=== PATIENT | male | born 1945 | race Caucasian/White ===

== ENCOUNTER → 2025-01-09 | Day surgery (SDC) | payer MEDICARE, OTHER ==
[2025-01-02 13:05] LABS: MEAN PLATELET VOLUME 8.1 FL (7.4-10.4); PRE OP HEMATOCRIT 49.0 % (42.0-52.0); PRE OP HEMOGLOBIN 16.7 g/dL (14.0-17.9); PRE OP PLATELET COUNT 146 X10'3 (140-440); PRE OP WHITE BLOOD COUNT 8.5 10'3 (4.8-10.8); RED CELL DISTRIBUTION WIDTH 15.1 % (11.5-14.5)
[2025-01-02 13:18] LABS: CREATININE 1.11 MG/DL (0.60-1.10); PRE OP ALT 29 U/L (30-65); PRE OP ANION GAP 5 (8-16); PRE OP AST 23 U/L (10-37); PRE OP BILIRUB, TOTAL 0.7 MG/DL (0.0-1.0); PRE OP GLUCOSE 104 MG/DL (70-104); PRE OP POTASSIUM 4.4 MMOL/L (3.4-5.1); PRE OP SODIUM 137 MMOL/L (135-145); TOTAL CARBON DIOXIDE 27.2 MMOL/L (24-32); eGFR 64 ML/MIN
[~2025-01-09] VITALS: Ht 177.8 cm; Wt 95.8 kg
[~2025-01-09] MED LIST: ASPI81TA52 PO; BENA10TA74 PO; BUPIVAcaine 0.5% inj/PF 0 ML ONE; CHOL3000 PO; DOCUMENT DATE & TIME OF BETA-BLOCKER PO ONE; HYDROmorphone/PF 0.2 MG/ML SYRINGE IV PRN; LIDOcaine 1% (10mg/ml)w/preservative inj. 20ml MDV ONE; METO-384 PO; ROSU10TA72 PO; acetaminophen 1,000mg/100ml IV 100 ML IV PRN; fentaNYL/PF 50MCG/1 ML 2ML syringe ONE; hydrALAZINE 20mg/ml inj. IV PRN; labetalol 20mg/4ml (5mg/ml) syringe IV PRN; metoprolol tartrate 12.5mg (1/2 tablet) PO ONE; midazolam 1 mg/ML 2ml injection ONE; morphine 4 MG/ML inj SYRINge IV PRN; ondansetron/PF 4mg/2ml inj IV PRN; propofol inj 20 ML IV ONE; ringers solution, lacted 1,000 ML IV SCH
[2025-01-09] MEDS: ceFAZolin 2gm/dext,iso 50mL 50 ML IV ONE (05:30)
[2025-01-09 06:30] VITALS: BP 128/76; PULSE 60; RESP 16; TEMP 97.9; O2SAT 97
[2025-01-09] MEDS: ringers solution, lacted 1,000 ML IV SCH (06:56)
[2025-01-09] MEDS: LIDOcaine 1% 30ml preserv. free vial IJ ONE (08:25)
[2025-01-09 08:40] VITALS: BP 107/65; PULSE 60; RESP 14; O2SAT 99
[2025-01-09 08:50] VITALS: BP 110/71; PULSE 60; RESP 16; O2SAT 97
[2025-01-09 09:00] VITALS: BP 110/73; PULSE 60; RESP 16; O2SAT 95
[2025-01-09 09:10] VITALS: BP 116/73; PULSE 60; RESP 12; O2SAT 96
--- NOTE | 2025-01-09 09:16 | OPERATIVE REPORT ---
Operative Report Operative Report CV surgery operative report 09 January 2025 Preoperative diagnosis: Permanent pacemaker generator BERT Postop diagnosis: Same Procedure: Pacemaker generator replacement using a [employer] model# [id number] serial# [id number] Surgeon: Dr. Alta Rivera Anesthesia: Local with 1% lidocaine approximately 8 cc with monitored anesthesia coverage Dr. Mott Complications: None EBL: 2 cc Procedure: The patient is taken to the operating room placed in supine position. Following the administration of intravenous sedation the anterior chest was prepped and draped sterilely. The skin and subcutaneous tissue overlying the pulse generator in the left prepectoral soft tissues was infiltrated with 1% lidocaine. The previous incision was reincised and carried down through skin and subcutaneous tissue sharply using electrocautery for hemostasis. The pocket surrounding the pulse generator was incised and the generator was removed. The leads were disconnected and then reconnected to the [employer] pulse generator. Interrogation showed a threshold for the right atrial lead of 0.4 volts at 0.4 milliseconds and impedance of 410 Ohms at 5 volts. The sensing P-wave was 3 mV. The right ventricular lead had a threshold of 0.5 volts with a current of 4.4 milliseconds. It had an impedance of 488 Ohms. The patient was pacer dependent and sensing was not determinable. The lead was placed back within the pocket coiling all excess lead between the generator and the muscle. The pocket was then copiously irrigated with antibiotic solution. The incision was closed by reapproximating the subcutaneous tissue with interrupted 2-0 Vicryl and the skin with a running 4-0 Monocryl subcuticular suture. Steri-Strips were applied and the sterile dressing placed. The patient was then returned to the PACU in satisfactory condition having tolerated the procedure satisfactorily. There were no complications. Sponge, needle and instrument counts were correct x2 at the end of the case. ALTA RIVERA III, MD Jan 09, 2025 09:16
== END | disposition home or self-care (01) ==
LOC: PAS 06:19
PROVIDERS: ATTEND Thoracic Surgery (Cardiothoracic Vascular Surgery)
DX: Z45.010 Encounter for checking and testing of cardiac pacemaker pulse generator [battery] (principal); I10 Essential (primary) hypertension; E78.5 Hyperlipidemia, unspecified; Z87.891 Personal history of nicotine dependence; Z85.46 Personal history of malignant neoplasm of prostate; Z79.82 Long term (current) use of aspirin; Z79.899 Other long term (current) drug therapy; Z90.49 Acquired absence of other specified parts of digestive tract; Z90.89 Acquired absence of other organs; Z96.643 Presence of artificial hip joint, bilateral; Z98.890 Other specified postprocedural states; Z82.49 Family history of ischemic heart disease and other diseases of the circulatory system; Z83.3 Family history of diabetes mellitus
CPT/HCPCS: 33228; 36415; 80053; 82948; 85025; A4215; A4618; A6258; A7000; C1785; J0690; J2003; J2250; J2704; J3010; J3490; J7030; J7120; Z7506; Z7512; Z7610